=== PATIENT | female | born 1965 | race Caucasian/White ===

== ENCOUNTER 2016-03-24 03:29 | Emergency (ER) | payer BC ==
[2016-03-24] MEDS ORDERED: KETOROLAC 30 MG/ML VIAL ONE (05:10)
== END 2016-03-24 05:58 | disposition home or self-care (01) ==
LOC: ER 03:29
DX: R09.1 Pleurisy (principal); M94.0 Chondrocostal junction syndrome [Tietze]
CPT/HCPCS: 71020; 96372